=== PATIENT | female | born 1945 | race Caucasian/White ===

== ENCOUNTER 2019-11-11 12:51 | Outpatient (CLI) | payer MEDICARE ==
[2019-11-11] MEDS ORDERED: IOVERSOL 320 100 ML VIAL IVP ONE (13:07)
[2019-11-11] MEDS ORDERED: IOVERSOL 320 50 ML VIAL ONE (13:19)
--- NOTE | 2019-11-12 11:09 | CT Report ---
Reason: LLQ PAIN Procedure Date: 11/11/2019 Accession Number: [id number] / [id number] Procedure: CT - Abdomen/Pelvis W CPT Code: Final Report FULL RESULT: EXAM: CT ABDOMEN AND PELVIS EXAM DATE: 11/11/2019 02:33 PM. CLINICAL HISTORY: LLQ PAIN. COMPARISONS: None. TECHNIQUE: Routine helical CT imaging was performed through the abdomen and pelvis. IV contrast: OPTI 320 100ML. Enteric contrast: No. Reconstructions: Coronal and sagittal. In accordance with CT protocol optimization, one or more of the following dose reduction techniques were utilized for this exam: automated exposure control, adjustment of mA and/or KV based on patient size, or use of iterative reconstructive technique. FINDINGS: Lung Bases: Unremarkable. Liver: Indeterminate linear 1.3 cm hypoattenuating right hepatic lesion (01/10), possibly a cyst or hemangioma. No liver masses. Gallbladder/Bile Ducts: Unremarkable. Spleen: Rounded hypoattenuating 1 cm splenic cyst is seen. Pancreas: Normal. Adrenal Glands: Normal. Kidneys: Normal. No masses or hydronephrosis. Peritoneal Cavity/Bowel: Small hiatal hernia. Normal caliber small bowel loops without signs of wall thickening or hyperemia. Appendix is nonvisualized, possibly surgically absent. No pericecal inflammation. No enlarged intraperitoneal or retroperitoneal lymph nodes. No intra-abdominal fluid collections. No pneumoperitoneum. No ascites. Mild wall thickening with hyperemia affecting the sigmoid colon and rectum could reflect nonspecific rectosigmoid proctocolitis. Few scattered colonic diverticula seen in the sigmoid colon without focal inflammation.. Pelvic Organs: Normal. The bladder and visualized pelvic organs are within normal limits. Vasculature: Atherosclerotic calcific Asians. No aneurysms. Bones: Left convex lumbar scoliosis. Degenerative disk disease in the spine. No focal suspicious lesions. Other: None. IMPRESSION: 1. Mild wall thickening with hyperemia affecting the distal sigmoid colon and rectum could reflect nonspecific proctocolitis, possibly infectious. 2. Few scattered sigmoid colonic diverticula are seen without inflammation. 3. Unremarkable small bowel loops without signs of inflammation or obstruction. [facility]
== END 2019-11-11 12:52 | disposition home or self-care (01) ==
LOC: DI 12:51
PROVIDERS: ATTEND Nurse Practitioner Family
DX: R10.32 Left lower quadrant pain (principal); K57.30 Diverticulosis of large intestine without perforation or abscess without bleeding
CPT/HCPCS: 74177; Q9967

== ENCOUNTER 2020-10-23 21:12 | Outpatient (CLI) | payer MEDICARE | END 2020-10-23 21:13 | disposition home or self-care (01) | LOC: COV 21:12 | PROVIDERS: ATTEND Family Medicine | DX: U07.1 COVID-19 (principal) ==

== ENCOUNTER 2020-11-26 15:52 | Outpatient (CLI) | payer MEDICARE ==
--- NOTE | 2020-11-26 17:00 | Ultrasound Report ---
PROCEDURE: Ankle Brachial Index INDICATIONS: COLD FEET TECHNIQUE: Ankle-brachial indices were obtained bilaterally and recorded. COMPARISONS: None. FINDINGS: Right ankle brachial index (ANN): 1.2 Left ankle brachial index (ANN): 1.2 Healing potential: Ankle pressures >55 mm Hg in non-diabetics and >80 mm Hg in diabetics are likely to achieve primary h ealing of ischemic foot ulcers. Toe pressures >30 mm Hg are likely to achieve primary healing of ischemic foot ulcers, toe or transme tatarsal amputations. IMPRESSION: Normal exam. Reviewed by: Selena Paula MD on 11/26/2020 4:59 PM PST Approved by: Selena Paula MD on 11/26/2020 4:59 PM PST Station ID: [id number]
== END 2020-11-26 15:53 | disposition home or self-care (01) ==
LOC: DI 15:52
PROVIDERS: ATTEND Family Medicine
DX: R20.8 Other disturbances of skin sensation (principal)
CPT/HCPCS: 93922